=== PATIENT | male | born 2000 | race Caucasian/White ===

== ENCOUNTER 2020-08-25 16:18 | Emergency (ER) | payer SELFPAY ==
[2020-08-25 16:40] VITALS: BP 118/63; PULSE 104; RESP 19; TEMP 36.8; O2SAT 99; BMI 36.3
--- NOTE | 2020-08-25 17:19 | HMH.EDUTC ---
[facility] [place] Dis[place] Clinical Impression: Pharyngitis Qualifiers: Pharyngitis/tonsillitis etiology: unspecified etiology Qualified Code(s): J02.9 - Acute pharyngitis, unspecified Disposition: Home, Self-Care Condition on Discharge: Good Instructions: DI for Pharyngitis/Tonsillopharyngitis -- Adult, Preventing the Spread of Coronavirus Discharge Instructions Additional Instructions: Drink plenty of fluids. Take tylenol for pain or fever. Return if you begin to have difficulty breathing. Follow up with your regular doctor. GO TO THE ER FOR ANY WORSENING SYMPTOMS Prescriptions: Ondansetron [Zofran 4mg ODT] 4 mg PO Q8HP PRN #20 tab.rapdis PRN Reason: Nausea Transmission Status: Received by [facility] Amoxicillin [Amoxicillin 400MG/5ML Oral Susp.] 500 mg PO BID 10 Days #125 susp.recon Transmission Status: Received by [facility] Referrals: PCP,No [Primary Care Provider] - Time of Disposition: 17:28 Medical Decision Making - Medical Records Medical records reviewed: No: I reviewed the patient's medical records. - Ravi Inquiry Pt receiving controlled substance: No Vital Signs: 08/25/20 16:40 Temperature 98.2 F Temperature Source Oral Pulse Rate [Right Brachial] 104 H Respiratory Rate 19 Blood Pressure [Right Arm] 118/63 Blood Pressure Mean [Right Arm] 81 Blood Pressure Source [Right Arm] Automatic Cuff Blood Pressure Position [Right Arm] Sitting 02 Sat by Pulse Oximetry 99 Oxygen Delivery Method Room Air - Lab Data Lab results reviewed: Yes: I reviewed the patient's lab results. Lab Results 08/25/20 16:47: Strep Scn Rapid Clinic Negative Orders (Tests/Meds): ORDERS Category Date Time Status Covid-19 Nasal PCR ([facility]) Routine Lab 08/25/20 16:45 Ordered Strep Screen Confirmation Stat Micro 08/25/20 16:47 Received [facility] [place] HPI - General Stated complaint: ore throatm drainage Time Seen by Provider: 08/25/20 16:55 Mode of Arrival: Ambulatory Source of Information: Patient Limitations: No Limitations Description of Symptoms (Recalled from Triage Doc. by RN): PATIENT C/O SORE THROAT AND SINUS DRAINAGE HEENT Symptoms (Recalled from RN notes): Yes Resp Symptoms (Recalled from RN notes): No Skin Symptoms (Recalled from RN notes): No MS Symptoms (Recalled from RN notes): No Functional Status (Recalled from RN notes): WNL - History of Present Illness Provider Complaint: He c/o sore throat for the past 2 days. He denies any known contact with someone with covid. He has been chilling, having a headache, and nauseated also. - Related Data Previous Rx's Medication Instructions Recorded Amoxicillin [Amoxicillin 400MG/5ML 500 mg PO BID 10 Days #125 08/25/20 Oral Susp.] susp.recon Ondansetron [Zofran 4mg ODT] 4 mg PO Q8HP PRN #20 tab.rapdis 08/25/20 Allergies Allergy/AdvReac Type Severity Reaction Status Date / Time No Known Allergies Allergy Verified 07/03/20 11:42 - Worker's Comp Is this a Worker's Comp case?: No [facility] History - Hepatitis A Screen Drug use history?: No High risk sexual behaviors?: No History of sexually transmitted infection?: No Currently employed?: No Childcare worker?: No Do you have indoor plumbing?: Yes Do you have electricity?: Yes Attestation statement:: This patient has been screened for Hepatitis A risk factors. I have reviewed the patient's past medical history: Yes - Social History Alcohol Intake: never Occupational Status: other ROS Obtained: Yes All systems reviewed & no additional complaints - Constitutional Constitutional: Reports system reviewed and no additional complaints, except as docu - Eyes Eyes: Reports system reviewed and no additional complaints, except as docu - ENT Ears, Nose, Mouth, and Throat: Reports as per HPI - Cardiovascular Cardiovascular: Denies chest pain - Respiratory Respiratory: Denies chest congestion, Denies cough - Gastrointestinal G
[2020-08-25 17:26] LABS: UTC Strep Screen (Rapid) Negative (Negative)
[2020-08-25 17:39] VITALS: BP 118/63; PULSE 104; RESP 19; TEMP 36.8; O2SAT 99
== END 2020-08-25 17:40 | disposition home or self-care (01) ==
PROVIDERS: Emergency Provider Nurse Practitioner Family
DX: Z20.822 Contact with and (suspected) exposure to COVID-19 (principal); J02.9 Acute pharyngitis, unspecified
CPT/HCPCS: 87880; 99202; G0463; U0003

== ENCOUNTER → 2020-09-22 16:04 | Outpatient (CLI) | payer OTHER, SELFPAY ==
--- NOTE | 2020-09-22 16:17 | XR_ITS ---
PROCEDURE: XR CHEST 2V CLINICAL HISTORY: Cardiomegaly COMPARISON: No exams were available for comparison FINDINGS: Cardiac size is upper limits of normal. No evidence of CHF. The lungs are clear without infiltrates, suspicious nodules, or pleural effusions. Mild midthoracic curvature convex right IMPRESSION: No acute findings. Dictated by: Suhail Das MD 09/26/2020 06:55 Suhail Das MD in [place] 09/26/2020 06:55
== END ==
PROVIDERS: PCP Family Medicine Adult Medicine; Visit Provider Family Medicine Adult Medicine
DX: I51.7 Cardiomegaly (principal)
CPT/HCPCS: 71046

== ENCOUNTER → 2020-10-20 14:56 | Outpatient (CLI) | payer OTHER, SELFPAY ==
--- NOTE | 2020-10-20 15:00 | CT_ITS ---
PROCEDURE: CT ANGIO CHEST CLINCIAL INDICATION: Abnormal EKG COMPARISON: No exams were available for comparison TECHNIQUE: IV Contrast: 70ML Isovue 370 Axial images obtained with sagittal and coronal reformats. All CT scans at the facility use one or more dose reduction, viz: automated exposure control, ma/kV adjustment per patient size (including targeted exams where dose is matched to indication, i.e. head), or iterative reconstruction technique. FINDINGS: HEART AND MEDIASTINAL STRUCTURES: No evidence of pulmonary embolus, aortic aneurysm, or aortic dissection.. There is some soft tissue density present in the anterior mediastinum may be due to residual thymic tissue. LUNGS AND PLEURAL SPACES: 3 mm noncalcified nodules present in the lingula. No lobar consolidation or collapse. No effusions or infiltrates. BONY STRUCTURES: No acute bony abnormalities apparent. 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 ADDITIONAL FINDINGS: No other significant abnormalities. IMPRESSION: 1. No acute finding. 2. Nonspecific 3 mm lingular nodule 3. 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
== END ==
PROVIDERS: Visit Provider Physician Assistant
DX: R94.31 Abnormal electrocardiogram [ECG] [EKG] (principal); Z82.41 Family history of sudden cardiac death
CPT/HCPCS: 71275; Q9967

== ENCOUNTER → 2020-11-06 15:11 | Outpatient (CLI) | payer OTHER, SELFPAY ==
--- NOTE | 2020-11-06 15:20 | CA_ITS ---
APPROVED REPORT EXAM: Comprehensive 2D, Doppler, and color-flow Echocardiogram Composing Room Supervisor: MAC Rojas, RVS Ht: 5 ft 11 in Wt: 270lbs BSA: 2.40 BP: 118/76 mmHg Indications: CP, ABN EKG Echo Enhancing Agent Comments: Poor acoustics due to large body habitus 2D Dimensions IVSd 0.90 cm LVEF (Visual) 60.00 % PWd 1.00 cm LA Volume 23.90 mL LVDd 4.98 cm LA Volume Index 10.00 mL/m2 (M/F) 16-34 LVDs 3.38 cm Aortic Root 3.04 cm Left Atrium 3.52 cm LVOT 2.01 cm (M/F) 1.5-2.5 M-Mode Dimensions LA Diam 3.70 cm (1.9-4.0) Ao Diam 3.23 cm (2.0-3.7) EPSs 0.22 cm LV Diastology E Decel Time 240.00 (160-240 msec) E/A Ratio 1.27 MED E' 11.80 (< 7 cm/sec) MED A' 10.00 cm/s E'/MED E' Ratio 6.49 (>14) LAT E' 14.20 (<10 cm/sec) LAT A' 10.80 cm/s E/LAT E' Ratio 5.39 (>14) Aortic Valve LVOT Max 103.00 (70-110 cm/s) LVOT VTI 19.35 cm AoV Peak Huber. 127.00 (50-130 cm/s) AO Peak GR. 6.40 mmHg AO Mean GR. 3.40 (<5 mmHg) AO VTI 22.67 (18-25 cm) JOSE (VTI) 2.71 (2.5-4.5 cm2) Mitral Valve MV A Velocity 60.00 (40-130 cm/s) E/A Ratio 1.27 MV Decel. Time 240.00 (160-240 ms) Pulmonary Valve PV Peak Velocity 103.00 (50-150 cm/s) Tricuspid Valve TR P. Velocity 245.00 cm/s RAP Estimate 10.00 mmHg RVSP 34.10 mmHg Left Ventricle Left atrium is normal size, left ventricle is normal size, there is no concentric left ventricular hypertrophy, visually estimated ejection fraction 55% with no regional wall motion abnormality, diastolic parameters are within normal range. Right Ventricle Right atrium and right ventricle are normal size and contractility. Aortic Valve Aortic valve is normal and there is no aortic stenosis or aortic insufficiency. Mitral Valve Mitral valve is normal, there is trace mitral regurgitation. Tricuspid Valve Tricuspid grossly normal, there is trace tricuspid regurgitation. Pulmonic Valve Pulmonic valve is poorly visualized. Great Vessels Aortic root is normal size. Pericardium No significant pericardial effusion noted. Conclusion 1. Normal left ventricular size, preserved left ventricular systolic function, visually estimated ejection fraction 55% with no regional wall motion abnormality, diastolic parameters are within normal range. 2. Trace mitral and tricuspid regurgitation. 3. No significant pericardial effusion noted. Electronically signed by : Sebastian Patrick, 11/06/2020 17:39:43
== END ==
PROVIDERS: Visit Provider Physician Assistant
DX: R07.9 Chest pain, unspecified (principal); R94.31 Abnormal electrocardiogram [ECG] [EKG]; Z87.891 Personal history of nicotine dependence
CPT/HCPCS: 93306

== ENCOUNTER → 2020-11-10 17:14 | Outpatient (CLI) | payer OTHER, SELFPAY | PROVIDERS: PCP Family Medicine Adult Medicine; Visit Provider Nurse Practitioner Family | DX: G47.33 Obstructive sleep apnea (adult) (pediatric) (principal); G47.00 Insomnia, unspecified; R06.83 Snoring; Z68.36 Body mass index [BMI] 36.0-36.9, adult | CPT/HCPCS: 95806 ==

== ENCOUNTER 2020-12-24 14:45 | Emergency (ER) | payer OTHER, SELFPAY ==
[2020-12-24 15:58] VITALS: BP 124/62; PULSE 87; RESP 18; TEMP 36.7; O2SAT 98; BMI 36.3
[2020-12-24 16:04] VITALS: BP 124/62; PULSE 87; RESP 18; TEMP 36.7; O2SAT 98
--- NOTE | 2020-12-24 16:04 | HMH.EDUTC ---
[facility] [place] Clinical Impression: Otitis media Qualifiers: Otitis media type: unspecified Laterality: left Qualified Code(s): H66.92 - Otitis media, unspecified, left ear Disposition: Home, Self-Care Condition on Discharge: Good Instructions: Sinusitis, Middle Ear Infection Additional Instructions: *Monitor Temp, Over the counter Motrin or Tylenol as directed/as needed Tylenol every 4 hours and Motrin every 6 hours (as long as your family doctor has told you that you can take it) for fever or pain. and straight to ER if unable to lower temp less than 101.0 after medication given *Warm salt water gargles may help to soothe the throat *Throat Lozenges *Warm fluids like tea with honey may help to soothe the throat *Sleep elevated *Humidifier/Vaporizer *Flonase 2 sprays in each nostril daily but be aware that it may take 2-3 days before you notice improvement Your throat swab was sent for culture. Those results are typically sent to your primary care. Be sure to follow up in 2-3 days with your family doctor/primary care physician if no improvement so they can review those result and treat if necessary. If you don?t have a primary care doctor, I recommend you get one but in the mean time, you will have to return to a walk in clinic Follow up IMMEDIATELY for new or worsening symptoms or no Noticeable improvement over the next 48-72 hours. 911 for difficulty breathing or swallowing Prescriptions: Amoxicillin/Potassium Clav [Augmentin 875-125 Tablet] 1 tab PO Q12H 10 Days #20 tab Prescription Printed Fluticasone Propionate [Flonase 50mcg nasal spray 16gm] 1 spr NS DAILY #1 bottle Prescription Printed Referrals: Alex Singh MD [Primary Care Provider] - As needed Time of Disposition: 16:17 Medical Decision Making - Ravi Inquiry Pt receiving controlled substance: No Rvai was queried for this patient: No Vital Signs: 12/24/20 15:58 12/24/20 16:04 Temperature 98.1 F 98.1 F Temperature Source Oral Oral Pulse Rate 87 Pulse Rate [Left] 87 Respiratory Rate 18 18 Blood Pressure 124/62 Blood Pressure [Right Arm] 124/62 Blood Pressure Mean [Right Arm] 82 02 Sat by Pulse Oximetry 98 Oxygen Delivery Method Room Air - Lab Data Lab results reviewed: Yes: I reviewed the patient's lab results. [facility] [place] - General Stated complaint: ear ache, sore throat, snuffy nose Time Seen by Provider: 12/24/20 16:04 Mode of Arrival: Ambulatory Source of Information: Patient Limitations: No Limitations Description of Symptoms (Recalled from Triage Doc. by RN): Sinus infection c/o snuffy nose, sore throat HEENT Symptoms (Recalled from RN notes): Yes Resp Symptoms (Recalled from RN notes): No Skin Symptoms (Recalled from RN notes): No MS Symptoms (Recalled from RN notes): No Functional Status (Recalled from RN notes): wnl - History of Present Illness Provider Complaint: Patient states that he thinks he has a sinus infection States that he has been having sinus pressure, throat feeling scratchy and pain in his left ear States that it has continued to get worse since States that today he was still not feeling well so he came in to get checked - Related Data Home Medications Medication Instructions Recorded Confirmed cholecalciferol (vitamin D3) 25 25 mcg PO DAILY 11/13/20 11/13/20 mcg (1,000 unit) capsule metoprolol succinate 25 mg 25 mg PO DAILY 11/13/20 11/13/20 tablet,extended release 24 hr Previous Rx's Medication Instructions Recorded omeprazole 40 mg capsule,delayed 40 mg PO DAILY #30 cap 10/19/20 release Amoxicillin/Potassium Clav 1 tab PO Q12H 10 Days #20 tab 12/24/20 [Augmentin 875-125 Tablet] Fluticasone Propionate [Flonase 1 spr NS DAILY #1 bottle 12/24/20 50mcg nasal spray 16gm] Allergies Allergy/AdvReac Type Severity Reaction Status Date / Time No Known Allergies Allergy Verified 12/24/20 16:03 - Worker's Comp Is this a Worker's Comp case?: No [facility]
[2020-12-24 22:56] LABS: UTC Strep Screen (Rapid) Negative (Negative)
== END 2020-12-24 16:20 | disposition home or self-care (01) ==
PROVIDERS: Emergency Provider Nurse Practitioner; PCP Family Medicine Adult Medicine
DX: H66.92 Otitis media, unspecified, left ear (principal); F17.290 Nicotine dependence, other tobacco product, uncomplicated
CPT/HCPCS: 87880; 99202; G0463

== ENCOUNTER 2021-01-22 21:30 | Emergency (ER) | payer OTHER, SELFPAY ==
[2021-01-22 21:33] VITALS: BP 116/73; PULSE 74; RESP 18; TEMP 36.9; O2SAT 98; BMI 38.0
--- NOTE | 2021-01-22 21:46 | HMH.EDSKAF ---
ED Disposition Clinical Impression: Cellulitis Qualifiers: Site of cellulitis: trunk Site of cellulitis of trunk: abdominal wall Qualified Code(s): L03.311 - Cellulitis of abdominal wall Disposition: Home, Self-Care Condition on Discharge: Good Instructions: DI for Cellulitis -- Adult Additional Instructions: keep clean and use meds and see pcp for follow up - and check culture results Prescriptions: cephALEXin [cephALEXin 500mg capsule*] 500 mg PO TID #30 cap Transmission Status: Pending to [facility] clindamycin HCL [Clindamycin HCl] 300 mg PO TID #30 cap Transmission Status: Pending to [facility] Referrals: Alex Singh MD [Primary Care Provider] - - Critical Care Critical Care Time: No Attestation: On 01/22/21, the high probability of a clinically significant, sudden or life threatening deterioration of the following system(s) required my full and direct attention, intervention and personal management. The time I documented below is in addition to time spent performing reported procedures but includes the following listed in this critical care notation. Medical Decision Making - Medical Records Medical records reviewed: Yes: I reviewed the patient's medical records. - Ravi Inquiry Pt receiving controlled substance: No Vital Signs: 01/22/21 21:33 Temperature 98.5 F Temperature Source Oral Pulse Rate [Right Radial] 74 Respiratory Rate 18 Blood Pressure [Right Arm] 116/73 Blood Pressure Mean [Right Arm] 87 02 Sat by Pulse Oximetry 98 - Lab Data Lab results reviewed: Yes: I reviewed the patient's lab results. Skin/Abscess/FB HPI - General Chief complaint: Wound/Laceration Stated complaint: SPOT INFECTED/OPEN STOMACH Time Seen by Provider: 01/22/21 21:35 Mode of Arrival: Ambulatory Source of Information: Patient, Medical Record Limitations: No Limitations Description of Symptoms (Recalled from ER Triage Doc. by RN): pt states this morning noticed an red area on rt groin that is painful to touch - History of Present Illness HPI narrative: tender area rt abd - noted over the last 2 days - MD complaint: abscess/boil Onset (ago): day(s) Tetanus up to date: unsure Severity: moderate Associated symptoms: denies other symptoms Treatments prior to arrival: none - Related Data Home Medications Medication Instructions Recorded Confirmed cholecalciferol (vitamin D3) 25 25 mcg PO DAILY 11/13/20 01/08/21 mcg (1,000 unit) capsule metoprolol succinate 25 mg 25 mg PO DAILY 11/13/20 01/08/21 tablet,extended release 24 hr Previous Rx's Medication Instructions Recorded omeprazole 40 mg capsule,delayed 40 mg PO DAILY #30 cap 10/19/20 release Fluticasone Propionate [Flonase 1 spr NS DAILY #1 bottle 12/24/20 50mcg nasal spray 16gm] cephALEXin [cephALEXin 500mg 500 mg PO TID #30 cap 01/22/21 capsule*] clindamycin HCL [Clindamycin HCl] 300 mg PO TID #30 cap 01/22/21 Allergies Allergy/AdvReac Type Severity Reaction Status Date / Time No Known Allergies Allergy Verified 01/08/21 13:08 [facility] History - Hepatitis A Screen Drug use history?: No High risk sexual behaviors?: No History of sexually transmitted infection?: No Currently employed?: No Childcare worker?: No Do you have indoor plumbing?: Yes Do you have electricity?: Yes Attestation statement:: This patient has been screened for Hepatitis A risk factors. I have reviewed the patient's past medical history: Yes Medical History: Reports:: Gastroesophageal Reflux Disease(GERD), Hypertension Other Medical History: Reports: Sinus Problems Other Surgeries: Yes: No Previous Surgery Amputation: No Fractures: No - Social History Smoking Status: Never smoker Alcohol Intake: never Alcohol Intake Frequency:: holidays/special occasions only Substance Use Type: denies use Occupational Status: employed Housing: house Household Members: spouse, children Family Hx:: Diabetes, Hy
[2021-01-22 21:58] VITALS: BP 118/80; PULSE 81; RESP 17; TEMP 36.8; O2SAT 98
== END 2021-01-22 22:01 | disposition home or self-care (01) ==
PROVIDERS: Emergency Provider Emergency Medicine; PCP Family Medicine Adult Medicine
DX: L03.311 Cellulitis of abdominal wall (principal); K21.9 Gastro-esophageal reflux disease without esophagitis
CPT/HCPCS: 87070; 87077; 87186; 87205; 99282

== ENCOUNTER → 2021-06-14 12:15 | Outpatient (CLI) | payer SELFPAY | PROVIDERS: PCP Family Medicine Adult Medicine; Visit Provider Nurse Practitioner | DX: Z20.822 Contact with and (suspected) exposure to COVID-19 (principal) | CPT/HCPCS: C9803; U0003; U0005 ==

== ENCOUNTER 2021-07-15 10:47 | Emergency (ER) | payer SELFPAY ==
[2021-07-15 11:40] VITALS: BP 147/83; PULSE 76; RESP 19; TEMP 37; O2SAT 98; BMI 38.0
--- NOTE | 2021-07-15 11:57 | HMH.EDUTC ---
[facility] [place]ression: Canker sores oral Disposition: Home, Self-Care Condition on Discharge: Good Instructions: Canker Sores (Alternative Therapy), Aphthous Ulcers, DI for Aphthous Ulcers (Canker Sores) Additional Instructions: Gargle warm salt water may help to clear up canker sore Over the Counter Peroxyl mouth wash as directed on package may help to clear up blisters and canker sores in the mouth Over the counter Milk of Magnesium placed on the canker sore for about a minute then spit out may help with pain and healing of sore Follow up with your Dentist if no improvement or any worsening of symptoms Follow up with your Family Doctor if needed Referrals: Alex Singh MD [Primary Care Provider] - As needed Ivan Lopez MD [Physician] - Willi Avalos MD [Physician] - Forms: Work/School Release Medical Decision Making - Ravi Inquiry Pt receiving controlled substance: No Ravi was queried for this patient: No Vital Signs: 07/15/21 11:40 Temperature 98.6 F Temperature Source Oral Pulse Rate [Right Brachial] 76 Respiratory Rate 19 Blood Pressure [Right Arm] 147/83 H Blood Pressure Mean [Right Arm] 104 Blood Pressure Source [Right Arm] Automatic Cuff Blood Pressure Position [Right Arm] Sitting 02 Sat by Pulse Oximetry 98 Oxygen Delivery Method Room Air [facility] [place] - General Stated complaint: blister on tongue Time Seen by Provider: 07/15/21 11:57 Mode of Arrival: Ambulatory Source of Information: Patient Limitations: No Limitations Description of Symptoms (Recalled from Triage Doc. by RN): PATIENT C/O BLISTER TO LEFT SIDE OF TONGUE SINCE FRIDAY HEENT Symptoms (Recalled from RN notes): Yes Resp Symptoms (Recalled from RN notes): No Skin Symptoms (Recalled from RN notes): No MS Symptoms (Recalled from RN notes): No Functional Status (Recalled from RN notes): WNL - History of Present Illness Provider Complaint: Patient States that he noticed he was sore on the right side of his tongue and when he raised it up he noticed he had a blister on the underside of tongue States that he has left it alone but it hasnt got any better so he came in to get it checked - Related Data Allergies Allergy/AdvReac Type Severity Reaction Status Date / Time No Known Allergies Allergy Verified 02/12/21 14:36 - Worker's Comp Is this a Worker's Comp case?: No [facility] [place] History - Hepatitis A Screen Drug use history?: No High risk sexual behaviors?: No History of sexually transmitted infection?: No Currently employed?: No Childcare worker?: No Do you have indoor plumbing?: Yes Do you have electricity?: Yes Attestation statement:: This patient has been screened for Hepatitis A risk factors. I have reviewed the patient's past medical history: Yes Medical History: Reports:: Gastroesophageal Reflux Disease(GERD), Hypertension Other Medical History: Reports: Sinus Problems Other Surgeries: Yes: No Previous Surgery Amputation: No Fractures: No - Social History Smoking Status: Never smoker Alcohol Intake: never Alcohol Intake Frequency:: holidays/special occasions only Substance Use Type: denies use Occupational Status: employed Housing: house Household Members: spouse, children Family Hx:: Diabetes, Hypertension, Other ROS Obtained: Yes All systems reviewed & no additional complaints, Yes Systems reviewed as appropriate & no additional complaints - Constitutional Constitutional: Reports system reviewed and no additional complaints, except as docu, Denies body ache, Denies chills, Denies fever(s) - ENT Ears, Nose, Mouth, and Throat: Reports system reviewed and no additional complaints, except as docu, Reports other (blister like lesion on right side of tongue) Physical Exam - General General appearance: alert, in no apparent distress - Expanded ENT Exam Open Mouth Image: 1 - blister like lesion noted like that commo
[2021-07-15 12:09] VITALS: BP 147/83; PULSE 76; RESP 19; TEMP 37; O2SAT 98
== END 2021-07-15 12:15 | disposition home or self-care (01) ==
PROVIDERS: Emergency Provider Nurse Practitioner; PCP Family Medicine Adult Medicine
DX: K12.0 Recurrent oral aphthae (principal); I10 Essential (primary) hypertension; K21.9 Gastro-esophageal reflux disease without esophagitis
CPT/HCPCS: 99202; G0463

== ENCOUNTER → 2021-07-30 10:46 | Outpatient (CLI) | payer SELFPAY | PROVIDERS: Visit Provider Nurse Practitioner | DX: U07.1 COVID-19 (principal) | CPT/HCPCS: C9803; U0003; U0005 ==

== ENCOUNTER 2021-09-11 18:06 | Emergency (ER) | payer SELFPAY ==
[2021-09-11 18:12] VITALS: BP 158/82; PULSE 86; RESP 20; TEMP 36.7; O2SAT 96; BMI 38.0
--- NOTE | 2021-09-11 18:24 | HMH.EDGENADL ---
ED Disposition Clinical Impression: Puncture wound of left foot Qualifiers: Encounter type: initial encounter Qualified Code(s): S91.332A - Puncture wound without foreign body, left foot, initial encounter Disposition: Home, Self-Care Condition on Discharge: Good Instructions: DI for Puncture Wound Prescriptions: Amoxicillin/Potassium Clav [Augmentin 875-125 Tablet] 1 tab PO Q12H 10 Days #20 tab Transmission Status: Received by [facility] Referrals: Alex Singh MD [Primary Care Provider] - - Critical Care Critical Care Time: No Attestation: On , the high probability of a clinically significant, sudden or life threatening deterioration of the following system(s) required my full and direct attention, intervention and personal management. The time I documented below is in addition to time spent performing reported procedures but includes the following listed in this critical care notation. Medical Decision Making - Medical Records Medical records reviewed: Yes: I reviewed the patient's medical records. - Ravi Inquiry Pt receiving controlled substance: No Vital Signs: 09/11/21 18:12 Temperature 98.1 F Temperature Source Oral Pulse Rate [Left Radial] 86 Respiratory Rate 20 Blood Pressure [Right Arm] 158/82 H Blood Pressure Mean [Right Arm] 107 02 Sat by Pulse Oximetry 96 Oxygen Delivery Method Room Air Orders (Tests/Meds): ED MEDICATIONS Discontinued Medications Generic Name Dose Route Start Last Admin Trade Name Freq PRN Reason Stop Dose Admin Amoxicillin/Clavulanate Potassium 1 each 09/11/21 18:29 Amoxicillin/Pot Clavulan 500mg Tablet PO 09/11/21 18:30 ONCE ONE ORDERS Category Date Time Status Foot XR left minimum 3 views [XR foot LT min 3V] Stat Exams 09/11/21 18:27 Taken General Adult HPI - General Chief complaint: PAIN Stated complaint: L foot/nail through center Time Seen by Provider: 09/11/21 18:24 Mode of Arrival: Ambulatory Limitations: No Limitations Description of Symptoms (Recalled from ER Triage Doc. by RN): pt to ed c/o left foot pain. pt states he stepped on a nail that was attached to a piece of wood. pt states the nail is not intact in his foot. pt states he is not utd on tdap. - History of Present Illness HPI narrative: left foot puncture wound through shoe from nail today Radiation: non-radiation Severity: moderate Consistency: constant Relieving factors: immobilization Exacerbating factors: movement Associated symptoms: denies other symptoms - Related Data Previous Rx's Medication Instructions Recorded Amoxicillin/Potassium Clav 1 tab PO Q12H 10 Days #20 tab 09/11/21 [Augmentin 875-125 Tablet] Allergies Allergy/AdvReac Type Severity Reaction Status Date / Time No Known Allergies Allergy Verified 02/12/21 14:36 [facility] History - Hepatitis A Screen Drug use history?: No High risk sexual behaviors?: No History of sexually transmitted infection?: No Currently employed?: No Childcare worker?: No Do you have indoor plumbing?: Yes Do you have electricity?: Yes Attestation statement:: This patient has been screened for Hepatitis A risk factors. Medical History: Reports:: Gastroesophageal Reflux Disease(GERD), Hypertension Other Medical History: Reports: Sinus Problems Other Surgeries: Yes: No Previous Surgery Amputation: No Fractures: No - Social History Smoking Status: Never smoker Alcohol Intake: never Alcohol Intake Frequency:: holidays/special occasions only Substance Use Type: denies use Occupational Status: employed Housing: house Household Members: spouse, children Family Hx:: Diabetes, Hypertension, Other ROS Obtained: Yes All systems reviewed & no additional complaints Physical Exam - General General appearance: alert, in no apparent distress - Respiratory Respiratory exam: Absent: respiratory distress, wheezes, stridor - Cardiovascular Cardiovascular exam: Present: regul
--- NOTE | 2021-09-11 18:27 | XR_ITS ---
PROCEDURE INFORMATION: Exam: XR Left Foot Exam date and time: 09/11/2021 6:27 PM Age: 21 years old Clinical indication: Injury or trauma; Other: Stepped on nail; Puncture; Foot; Left; Foreign body involvement not specified; Additional info: Puncture wound from nail TECHNIQUE: Imaging protocol: XR Left foot. Views: 3 or more views. Total images: 3 COMPARISON: No relevant prior studies available. FINDINGS: Bones/joints: Small plantar calcaneal spur. Mild spurring at the Achilles tendon calcaneal attachment. No fractures. Normal alignment is maintained in the midfoot, hindfoot, and forefoot. Joint spaces are well-maintained. No blastic or lytic lesions. No gross ankle joint effusion. No hindfoot coalition. Soft tissues: No periostitis or osteolysis. No gross soft tissue abnormalities. No radiopaque foreign bodies are identified in the plantar forefoot, which is marked as the region of interest. Other findings: Normal mineralization. IMPRESSION: 1. No acute findings. No foreign bodies are identified. 2. Mild calcaneal spurring.
[2021-09-11 19:32] VITALS: BP 138/76; PULSE 83; RESP 16; TEMP 36.2; O2SAT 98
== END 2021-09-11 19:36 | disposition home or self-care (01) ==
PROVIDERS: Emergency Provider Emergency Medicine; PCP Family Medicine Adult Medicine
DX: S91.332A Puncture wound without foreign body, left foot, initial encounter (principal); W22.8XXA Striking against or struck by other objects, initial encounter; K21.9 Gastro-esophageal reflux disease without esophagitis; I10 Essential (primary) hypertension
CPT/HCPCS: 73630; 99282

== ENCOUNTER 2021-10-13 10:09 | Emergency (ER) | payer SELFPAY ==
[2021-10-13 11:36] VITALS: BP 144/88; PULSE 84; RESP 18; TEMP 36.6; O2SAT 99; BMI 38.0
[2021-10-13 11:50] LABS: UTC Strep Screen (Rapid) Negative (Negative)
--- NOTE | 2021-10-13 11:57 | HMH.EDUTC ---
[facility] [place] Disposition Clinical Impression: Strep throat exposure Pharyngitis Qualifiers: Pharyngitis/tonsillitis etiology: unspecified etiology Qualified Code(s): J02.9 - Acute pharyngitis, unspecified Disposition: Home, Self-Care Condition on Discharge: Good Instructions: Strep Throat, DI for Strep Throat Additional Instructions: Drink plenty of fluids. Take tylenol or ibuprofen for pain or fever. Take the medications as directed. Follow up with your regular doctor. GO TO THE ER FOR ANY WORSENING SYMPTOMS Throw your tooth brush away and get a new one. Prescriptions: Ondansetron [Zofran 4mg ODT] 4 mg PO Q8HP PRN #20 tab PRN Reason: Nausea Transmission Status: Received by [id number] Amoxicillin/Potassium Clav [Augmentin 875-125 Tablet] 1 tab PO Q12H 10 Days #20 tab Transmission Status: Received by [id number] predniSONE [Deltasone 10mg tablet] 10 mg PO BID 3 Days #6 tab Transmission Status: Received by [id number] Referrals: Alex Singh MD [Primary Care Provider] - Forms: Work/School Release Time of Disposition: 11:58 Medical Decision Making - Medical Records Medical records reviewed: No: I reviewed the patient's medical records. - Ravi Inquiry Pt receiving controlled substance: No Vital Signs: 10/13/21 11:36 10/13/21 12:03 Temperature 98 F 98 F Temperature Source Oral Pulse Rate 84 Pulse Rate [Left] 84 Respiratory Rate 18 18 Blood Pressure 144/88 H Blood Pressure [Right Arm] 144/88 H Blood Pressure Mean [Right Arm] 106 02 Sat by Pulse Oximetry 99 - Lab Data Lab Results 10/13/21 11:31: Strep Scn Rapid Clinic Negative Orders (Tests/Meds): ORDERS Category Date Time Status Strep Screen Confirmation Stat Micro 10/13/21 11:31 Received [facility] [place] HPI - General Stated complaint: sore throat, cough Time Seen by Provider: 10/13/21 11:40 Mode of Arrival: Ambulatory Source of Information: Patient Limitations: No Limitations Description of Symptoms (Recalled from Triage Doc. by RN): pt wants treated for a sinus infection. HEENT Symptoms (Recalled from RN notes): Yes Resp Symptoms (Recalled from RN notes): No Skin Symptoms (Recalled from RN notes): No MS Symptoms (Recalled from RN notes): No Functional Status (Recalled from RN notes): wnl - History of Present Illness Provider Complaint: he c/o sinus drainage and congestion. daughter is positive for strep. - Related Data Previous Rx's Medication Instructions Recorded Amoxicillin/Potassium Clav 1 tab PO Q12H 10 Days #20 tab 09/11/21 [Augmentin 875-125 Tablet] Amoxicillin/Potassium Clav 1 tab PO Q12H 10 Days #20 tab 10/13/21 [Augmentin 875-125 Tablet] Ondansetron [Zofran 4mg ODT] 4 mg PO Q8HP PRN #20 tab 10/13/21 predniSONE [Deltasone 10mg tablet] 10 mg PO BID 3 Days #6 tab 10/13/21 Allergies Allergy/AdvReac Type Severity Reaction Status Date / Time No Known Allergies Allergy Verified 02/12/21 14:36 - Worker's Comp Is this a Worker's Comp case?: No [facility] History - Hepatitis A Screen Drug use history?: No High risk sexual behaviors?: No History of sexually transmitted infection?: No Currently employed?: No Childcare worker?: No Do you have indoor plumbing?: Yes Do you have electricity?: Yes Attestation statement:: This patient has been screened for Hepatitis A risk factors. I have reviewed the patient's past medical history: Yes Medical History: Reports:: Gastroesophageal Reflux Disease(GERD), Hypertension Other Medical History: Reports: Sinus Problems Other Surgeries: Yes: No Previous Surgery Amputation: No Fractures: No - Social History Smoking Status: Never smoker Alcohol Intake: never Alcohol Intake Frequency:: holidays/special occasions only Substance Use Type: denies use Occupational Status: employed Housing: house Household Members: spouse, children Family Hx:: Diabetes, Hypertension, Other ROS Obtained: Yes All systems r
[2021-10-13 12:03] VITALS: BP 144/88; PULSE 84; RESP 18; TEMP 36.6
== END 2021-10-13 12:04 | disposition home or self-care (01) ==
PROVIDERS: Emergency Provider Nurse Practitioner Family; PCP Family Medicine Adult Medicine
DX: J02.9 Acute pharyngitis, unspecified (principal); K21.9 Gastro-esophageal reflux disease without esophagitis
CPT/HCPCS: 87880; 99202; G0463

== ENCOUNTER → 2023-07-16 07:06 | Outpatient (CLI) | payer OTHER, SELFPAY ==
--- NOTE | 2023-07-16 07:09 | CT_ITS ---
FINAL REPORT TECHNIQUE: Axial images through the abdomen and pelvis were performed without contrast. This study was performed with techniques to keep radiation doses as low as reasonably achievable, (ALARA). Individualized dose reduction techniques using automated exposure control or adjustment of mA and/or kV according to the patient's size were employed. CLINICAL HISTORY: hernia COMPARISON: None FINDINGS: Abdomen: The lung bases are clear. The liver is enlarged at 22 cm with moderate fatty infiltration. The gallbladder is present. The spleen, pancreas, adrenals and kidneys are unremarkable. There is a fat-containing umbilical hernia. Hernia defect measures approximately 2.3 cm in transverse dimension. Pelvis: The urinary bladder is contracted. The appendix is not visualized. There is no pelvic mass or inflammation. IMPRESSION: Enlarged fatty liver. 2.3 cm umbilical hernia. Reviewed, Interpreted and Dictated by Lucas Randolph MD Transcribed by Carlene Currie Authenticated and [facility]
== END ==
PROVIDERS: PCP Nurse Practitioner Family; Visit Provider Student in an Organized Health Care Education/Training Program
DX: R19.05 Periumbilic swelling, mass or lump (principal)
CPT/HCPCS: 74176

== ENCOUNTER 2024-01-20 14:08 | Outpatient (CLI) | payer BC, SELFPAY | END 2024-01-20 23:59 | disposition home or self-care (01) | LOC: LAB.DROPOF 01-21 14:08 | PROVIDERS: PCP Student in an Organized Health Care Education/Training Program; Visit Provider Student in an Organized Health Care Education/Training Program | DX: J02.0 Streptococcal pharyngitis (principal); B95.4 Other streptococcus as the cause of diseases classified elsewhere | CPT/HCPCS: 87070; 87077; 87186 ==

== ENCOUNTER 2024-07-23 15:50 | Outpatient (CLI) | payer BC, SELFPAY ==
[2024-07-23 18:44] LABS: Basophils # 0.1 K/mm3 (0-0.2); Basophils % 1.1 % (0.1-2.0); Eosinophils # 0.4 K/mm3 (0.0-0.4); Eosinophils % 3.9 % (0.1-12.0); Hematocrit 36.7 % (42.0-52.0); Hemoglobin 13.1 g/dL (14.1-18.0); Lymphocytes # 3.6 K/mm3 (0.7-4.5); Lymphocytes % 36.2 % (10-50); Mean Corpuscular HGB Conc 35.6 g/dL (31.8-35.4); Mean Corpuscular Hemoglobin 31.5 pg (27.0-31.2); Mean Corpuscular Volume 88.5 fl (80-94); Mean Platelet Volume 8.7 fl (7.4-10.4); Monocytes # 0.5 K/mm3 (0.1-1.0); Monocytes % 4.8 % (1.7-9.3); Neutrophils # 5.4 K/mm3 (1.8-7.8); Platelet Count 300 K/mm3 (142-424); Red Blood Count 4.15 M/mm3 (4.60-6.20); Red Cell Distribution Width 14.5 % (11.5-17.5)
[2024-07-23 19:05] LABS: Chloride 107 mmol/L (98-107); HIV (1&2) Antibody Rapid NONREACTIVE (NONREACTIVE)
[2024-07-23 19:06] LABS: Potassium 4.4 mmoL/L (3.5-5.1); Sodium 140 mmol/L (136-145)
[2024-07-23 19:08] LABS: Anion Gap 10.4 mEq/L (5-15); Blood Urea Nitrogen 11 mg/dl (9-20); Carbon Dioxide 27 mmol/L (22.0-30.0); Estimated Glomerular Filt Rate 136 ml/min (>60); GFR (African American) 165 ML/MIN (>60)
[2024-07-23 19:09] LABS: Alanine Aminotransferase 23 U/L (12-78); Albumin/Globulin Ratio 1.3 (1.1-1.8); Alkaline Phosphatase 90 U/L (38-126); Aspartate Amino Transferase 20 U/L (17-59); Bilirubin,Total 0.4 mg/dl (0.2-1.3); Calcium 8.5 mg/dl (8.4-10.2); Chol/HDL Ratio 6.1 (1-3.5); Cholesterol 134 mg/dl (140-200); Globulin 3.2 g/dL (1.3-3.2); Glucose 87 mg/dl (74-100); HDL Cholesterol 22 mg/dl (40-60); Total Protein,Serum 7.2 g/dl (6.3-8.2); Triglycerides 187 mg/dl (30-150); VLDL Cholesterol 37 mg/dL (0-40)
[2024-07-23 19:11] LABS: Hemoglobin A1C 4.9 % (4.0-6.0)
[2024-07-23 19:21] LABS: Direct LDL Cholesterol 89.05 mg/dL (100-129)
[2024-07-23 19:40] LABS: Thyroid Stimulating Hormone 2.05 uIU/mL (0.465-4.68)
[2024-07-25 09:08] LABS: HCV Ab Non Reactive (Non Reactive)
== END 2024-07-23 23:59 | disposition home or self-care (01) ==
LOC: LAB.DROPOF 07-25 09:18
PROVIDERS: PCP Student in an Organized Health Care Education/Training Program; Visit Provider Student in an Organized Health Care Education/Training Program
DX: Z68.41 Body mass index [BMI] 40.0-44.9, adult (principal); Z13.1 Encounter for screening for diabetes mellitus; Z11.4 Encounter for screening for human immunodeficiency virus [HIV]; E66.01 Morbid (severe) obesity due to excess calories; Z13.220 Encounter for screening for lipoid disorders; Z11.59 Encounter for screening for other viral diseases; Z13.29 Encounter for screening for other suspected endocrine disorder; Z83.49 Family history of other endocrine, nutritional and metabolic diseases; Z13.21 Encounter for screening for nutritional disorder
CPT/HCPCS: 80050; 80053; 80061; 82306; 83036; 84443; 85025; 86803; 87389

== ENCOUNTER 2025-01-12 10:16 | Emergency (ER) | payer BC, SELFPAY ==
--- NOTE | 2025-01-12 10:52 | HMH.EDGENADL ---
Discharge Plan Disposition Patient Disposition: Home, Self-Care Prescriptions Prescriptions: New hydrocortisone [Preparation H Hydrocortisone] 1 % cream 1 applic topical TID PRN (Reason: skin irritation) Qty: 28.35 0RF No Action cholecalciferol (vitamin D3) 1,250 mcg (50,000 unit) capsule 1,250 mcg PO WEEKLY Qty: 14 0RF Referrals Follow up/Referrals: Teodoro Conteh II, MD [Staff Physician] - See instructions Provider,Referral, [Primary Care Provider] - See instructions Activity Restrictions/Add. Instructions Additional Instructions/Restrictions: You were seen today in the emergency room with complaints of rectal bleeding which is likely caused by hemorrhoids. If having issues with constipation/hard stools, could recommend some [id number] stool softeners in order to decrease the amount of straining. Follow-up with Dr. Conteh in the next week or 2 for an appointment with GI. Return precautions were given to the patient, return to the ER if condition worsens. Clinical Impressions Clinical Impression: Hemorrhoids without complication Stand Alone Forms Stand Alone Forms: Work/School Release Print Language Print Language: Macedonian Discharge ED Provider: Juventino Gil General Adult HPI <Beronica Calzada APRN - Last Filed: 01/12/25 11:09> General Chief complaint: Recheck/Abnormal Lab/Rx Stated complaint: anal bleeding Time Seen by Provider: 01/12/25 10:47 History of Present Illness HPI narrative: Dorian Gee is a 24-year-old male who comes to the emergency room today with complaints of rectal bleeding. Mr. Hills states that he was having a bowel movement this morning and his stool was very hard and he had to strain more than usual. Reports when he went to [facility], he noted a good bit of blood on the toilet paper. Has a history of hemorrhoids in the past. Has used hemorrhoidal suppositories in the past for treatment. Has never had to have surgical intervention for these. Does not take any blood thinners. No melanotic stools noted. No hematemesis noted. Denies any other trauma to the area, no sexual intercourse. Denies any dizziness, lightheadedness. No abdominal pain. No other complaints at this time. HPI disclaimer Related Data Previous Rx's ?Medication ?Instructions ?Recorded cholecalciferol (vitamin D3) 1,250 1,250 mcg PO WEEKLY #14 caps 07/26/24 mcg (50,000 unit) capsule hydrocortisone 1 % topical cream 1 applic topical TID PRN skin 01/12/25 (Preparation H Hydrocortisone) irritation #28.35 grams Allergies Allergy/AdvReac Type Severity Reaction Status Date / Time No Known Allergies Allergy Verified 11/03/24 08:05 [facility] <Beronica Calzada APRN - Last Filed: 01/12/25 11:09> [facility] Disclaimer: The information contained in this section may have been updated after the patient was seen, as this information can be updated by other users. Medical History Morbid obesity BMI now 43.3%. 24 pound weight gain since last visit in the setting of a sedentary lifestyle. Gastroenteritis Body mass index (BMI) of 40.1 to 44.9 in adult Nocturnal hypoxemia No evidence of nocturnal hypoxemia on CPAP. DIONICIO (obstructive sleep apnea) Severe DIONICIO with nocturnal hypoxemia. Significant improvement in compliance, average usage. Strep throat exposure Puncture wound of left foot Canker sores oral HTN (hypertension) Cellulitis Otitis media Gastroesophageal reflux disease Abnormal EKG History of nicotine vaping Chest pain Pharyngitis Surgical History No significant past surgical history Family History Other Diabetes Hyperlipidemia Social History Smoking Status: Never smoker second hand exposure: No alcohol intake: never substance use type: denies use current occupational status: employed Travel in the last 8 weeks?: None ([place]) household members: spouse and children housing: house marital status: Other Medical History Have you received the Flu Vaccine for this season: Yes Have you received the Pneumonia Vaccine: No <Beronica Calzada APRN - Last Filed: 01/12/25 11:09> ROS Obtained: Yes Systems reviewed as appropriate & no additional complaints except as documented Physical Exam <Beronica Calzada APRN - Last Filed: 01/12/25 11:09> General General appearance: alert and in no apparent distress Head Head exam: atraumatic and normocephalic Eye Eye exam: Present PERRL and EOMI Chest Chest inspection: Present symmetric chest wall rise Respiratory Respiratory exam: Present normal lung sounds bilaterally Cardiovascular Cardiovascular exam: Present regular rate and normal rhythm Abdominal Exam Abdominal exam: Present soft and normal bowel sounds; Absent tenderness Rectal Exam Rectal exam: Present normal inspection Extremities Exam Extremities exam: Present full ROM Neurological Exam Neurological exam: Present alert and oriented X3 Skin Skin exam: Present warm, dry and intact Medical Decision Making <Beronica Calzada, RACE RELATIONS ADVISER - Last Filed: 01/12/25 11:09> Medical Records Screening: Per USPSTF and CDC recommendations, given the prevalence of disease in our region, it is our hospital?s policy to screen for HIV and viral Hepatitis for all patients aged 18 and over and those with ongoing risk factors. Ravi Inquiry Pt receiving controlled substance: No Vital Signs: 01/12/25 10:55 01/12/25 11:16 Temperature 98.1 F 98.1 F Temperature Source Oral Oral Pulse Rate 85 Pulse Rate [Right Radial] 89 Respiratory Rate 15 16 Blood Pressure 135/86 Blood Pressure [Right Arm] 135/74 Blood Pressure Mean [Right Arm] 94 Blood Pressure Source Automatic Cuff Blood Pressure Source [Right Arm] Automatic Cuff Blood Pressure Position Sitting Blood Pressure Position [Right Arm] Supine 02 Sat by Pulse Oximetry 98 Oxygen Delivery Method Room Air Room Air Medical Decision Narrative: In summary patient is an 24-year-old male who presents emergency department for evaluation of rectal bleeding. Patient is hemodynamically stable upon arrival, afebrile. Unremarkable and nonfocal physical exam, rectal exam done for the inspection for hemorrhoids. Did not see any large hemorrhoids upon visual exam. Differential diagnosis includes GI bleed versus hemorrhoids versus pilonidal cyst. Initial workup will be conducted with visual inspection of the rectum. Initial interventions include multimodal pain management with repositioning. Rectal exam did not reveal any external large hemorrhoids at this time. Did consider ordering a CT of the abdomen pelvis with contrast to evaluate for further GI bleed but patient has had a history of hemorrhoids in the past and does not describe any melanotic stools, reported a bowel movement this morning in which the stool was very hard and required a lot of straining for him to pass the stool, there was blood noted immediately after the bowel movement. Patient not on any blood thinners, has no history of GI bleeding so CT of the pelvis was deferred. Patient not tachycardic, has a normotensive blood pressure. Given this, patient was appropriate for medical discharge. Will call in a prescription for some Preparation H and a referral to Dr. Conteh who is our local GI physician who can assist Mr. Gee with his hemorrhoids. <Juventino Gil MD - Last Filed: 01/21/25 23:01> Vital Signs: 01/12/25 10:55 01/12/25 11:16 Temperature 98.1 F 98.1 F Temperature Source Oral Oral Pulse Rate 85 Pulse Rate [Right Radial] 89 Respiratory Rate 15 16 Blood Pressure 135/86 Blood Pressure [Right Arm] 135/74 Blood Pressure Mean [Right Arm] 94 Blood Pressure Source Automatic Cuff Blood Pressure Source [Right Arm] Automatic Cuff Blood Pressure Position Sitting Blood Pressure Position [Right Arm] Supine 02 Sat by Pulse Oximetry 98 Oxygen Delivery Method Room Air Room Air Medical Decision Narrative: In summary patient is an 24-year-old male who presents emergency department for evaluation of rectal bleeding. Patient is hemodynamically stable upon arrival, afebrile. Unremarkable and nonfocal physical exam, rectal exam done for the inspection for hemorrhoids. Did not see any large hemorrhoids upon visual exam. Differential diagnosis includes GI bleed versus hemorrhoids versus pilonidal cyst. Initial workup will be conducted with visual inspection of the rectum. Initial interventions include multimodal pain management with repositioning. Rectal exam did not reveal any external large hemorrhoids at this time. Did consider ordering a CT of the abdomen pelvis with contrast to evaluate for further GI bleed but patient has had a history of hemorrhoids in the past and does not describe any melanotic stools, reported a bowel movement this morning in which the stool was very hard and required a lot of straining for him to pass the stool, there was blood noted immediately after the bowel movement. Patient not on any blood thinners, has no history of GI bleeding so CT of the pelvis was deferred. Patient not tachycardic, has a normotensive blood pressure. Given this, patient was appropriate for medical discharge. Will call in a prescription for some Preparation H and a referral to Dr. Conteh who is our local GI physician who can assist Mr. Gee with his hemorrhoids. I was consulted by the [facility], and we discussed the complexity of the problems being addressed. I approved the treatment and management plan for this patient's care in the Emergency Department, thus performing a substantive portion of the medical decision making. Juventino Gil MD Critical Care <Beronica Calzada, RACE RELATIONS ADVISER - Last Filed: 01/12/25 11:09> Critical Care Time Critical Care Time: No
[2025-01-12 10:55] VITALS: BP 135/74; PULSE 89; RESP 15; TEMP 36.7; O2SAT 98; BMI 42.0
[2025-01-12 11:16] VITALS: BP 135/86; PULSE 85; RESP 16; TEMP 36.7; O2SAT 99
== END 2025-01-12 11:16 | disposition home or self-care (01) ==
PROVIDERS: Emergency Provider Emergency Medicine
DX: K64.9 Unspecified hemorrhoids (principal)
CPT/HCPCS: 99282